=== PATIENT | male | born 2000 | race Caucasian/White ===

== ENCOUNTER 2021-09-01 14:58 | Emergency (ER) | payer OTHER ==
[~2021-09-01] VITALS: Ht 165.1 cm; Wt 88.0 kg
--- NOTE | 2021-09-01 15:51 | REP ---
INDICATION: pain. COMPARISON: None. TECHNIQUE: Two views FINDINGS: There is an anterior glenohumeral dislocation. There is no evidence of a concomitant fracture at this time. IMPRESSION: Dislocation as described above <Electronically signed by Kevin Trimble > 09/01/21 [id number]
[2021-09-01] MEDS ORDERED: MORPHINE 4 MG/ML 1ML VIAL/SYRINGE (J2270) IV ONE (16:15)
[2021-09-01] MEDS ORDERED: propofoL 200 MG/20 ML VIAL IV.PROC PRN (16:15)
[2021-09-01] MEDS ORDERED: ONDANSETRON 4MG/2ML VIAL IV ONE (16:15)
[2021-09-01] MEDS ORDERED: NS 1,000 ML IV SCH (16:15)
--- NOTE | 2021-09-01 17:16 | REP ---
INDICATION: status post reduction COMPARISON: 09/01/2021 at 3:33 p.m. TECHNIQUE: Portable AP view of the right shoulder FINDINGS: Satisfactory reduction at the glenohumeral joint. Acromioclavicular joint is normal. There is no evidence for acute fracture or continued dislocation. Surrounding soft tissues are normal. IMPRESSION: Satisfactory reduction at the right shoulder. <Electronically signed by Monty Spangler > 09/01/21 [id number]
[2021-09-01 18:00] VITALS: BP 142/64
== END 2021-09-01 18:12 | disposition home or self-care (01) ==
LOC: M ED 14:58
DX: S43.004A Unspecified dislocation of right shoulder joint, initial encounter (principal); X58.XXXA Exposure to other specified factors, initial encounter; Y92.59 Other trade areas as the place of occurrence of the external cause; Y93.89 Activity, other specified; Y99.0 Civilian activity done for income or pay
CPT/HCPCS: 23650; 73030; 93041; 94760; 96374; 96375; 99285; J2270; J2405